=== PATIENT | female | born 1945 | race Caucasian/White ===

== ENCOUNTER 2017-02-14 11:16 | Inpatient (IN) | payer BC, MEDICARE ==
[2017-02-09 19:55] LABS: BASOPHILS 0.4 %; BASOPHILS ABSOLUTE 0.04 10/3/uL (0.0-0.16); EOSINOPHILS 0.4 %; EOSINOPHILS ABSOLUTE 0.04 10/3/uL (0.0-0.53); HEMATOCRIT 39.8 % (36.0-48.0); IMMATURE GRANULOCYTES 0.5 %; IMMATURE GRANULOCYTES ABSOLUTE 0.05 10/3/uL (0.0-0.11); LYMPHOCYTES 13.4 %; LYMPHOCYTES ABSOLUTE 1.22 10/3/uL (0.67-4.30); MEAN CORPUSCULAR HEMOGLOB 32.3 pg (26.0-34.0); MEAN CORPUSCULAR VOLUME 91.7 fL (80-100); MONOCYTES 6.5 %; MONOCYTES ABSOLUTE 0.59 10/3/uL (0.21-1.20); NEUTROPHILS 78.8 %; NEUTROPHILS ABSOLUTE 7.17 10/3/uL (2.02-8.40); PLATELET COUNT 340 10/3/uL (150-400); RBC DISTRIBUTION WIDTH 15.2 % (12.0-16.0); RED CELL COUNT 4.34 10/6/uL (4.0-5.6)
[2017-02-09 19:58] LABS: MANUAL DIFF NO %; MEAN CORPUS HGB CONC 35.2 g/dL (32.0-36.0); WHITE BLOOD CELLS 9.1 10/3/uL (4.5-10.5)
[2017-02-09 20:01] LABS: PARTIAL THROMBO TIME 27.1 SEC (22.5-37.2); PROTIME (NOT ORD) 12.7 SEC (12.0-14.5)
[2017-02-09 20:02] LABS: ASCORBIC ACID (UR NOT ORDER) NEG (NEG); BILIRUBIN, URINE NEGATIVE (NEG); KETONE, URINE NEGATIVE (NEG); LEUKOCYTE ESTERASE(NOT OR TRACE (NEG); WBC (NOT ORDERED) (RFLEX) 4 (0-5)
[2017-02-09 20:18] LABS: A/G RATIO 1.7 (0.7-1.9); ALBUMIN 4.1 G/DL (3.5-5.0); BUN (BLOOD UREA NITROGEN) 16 MG/DL (6-23); CALCIUM, SERUM 9.7 MG/DL (8.5-10.4); CHLORIDE, SERUM 91 MMOL/L (96-112); CO2 (CARBON DIOXIDE) 32 MMOL/L (24-34); CREATININE 0.95 MG/DL (0.55-1.02); GFR AFRICAN AMERICAN 70 ML/MIN (>=60); GFR NON AFRICAN AMERICAN 61 ML/MIN (>=60); GLOBULIN 2.4 G/DL (2.5-4.1); GLUCOSE, SERUM 120 MG/DL (60-99); SGOT(AST) 23 U/L (5-40); SGPT(ALT) 26 U/L (5-65); SODIUM, SERUM 133 MMOL/L (135-148); TOTAL BILIRUBIN 0.6 MG/DL (0-1.2); TOTAL PROTEIN 6.5 G/DL (6.0-8.5)
[2017-02-09 20:20] LABS: ALKALINE PHOSPHATASE 124 U/L (45-117); POTASSIUM, SERUM 4.6 MMOL/L (3.5-5.3)
--- NOTE | ~2017-02-14 | HP ---
History And Physical [address] [place]. [address] NAME: BRUCE LOONEY : 49 STATUS : ADM IN [facility]#: [id number] AGE: 72 ADM/REG DATE : 02/14/17 MR#: [id number] REPORT SERV DATE: 02/14/17 DICTATED BY: ALY GOLDEN III DATE: 02/14/17 REPORT STATUS : Draft TRANSCRIBED BY: MODL DATE: 02/14/17 DATE OF ADMISSION: 02/14/2017 CHIEF COMPLAINT: Left hip pain. HISTORY: The patient is a 72-year-old white female, who complains of pain in her left hip and has so for the past month. She got an MRI performed of both her left and right hip which revealed stage III avascular crevices of her left femoral head and stage II of her right femoral head. She is symptomatic on crutches. X-rays reveal collapse of her femoral head and she is admitted for a left total hip arthroplasty. Risks, benefits, and expected outcomes have been explained, but not limited to blood clots, infection, neurovascular injuries, limb length discrepancies either real or perceived, postoperative dislocations, intraoperative fractures, component failures, as well as persistent pain, limp, and foot drop. PAST MEDICAL HISTORY: Significant for high blood pressure. Otherwise, she denies any diabetes, liver, lung, or kidney problems. PREVIOUS SURGERIES: Includes back surgery and colon surgery. MEDICATIONS: Please see the MAR. ALLERGIES: PENICILLIN AND SULFA. SOCIAL HISTORY: The patient drinks alcohol, wine, and cocktails about two a day. PHYSICAL EXAMINATION: GENERAL: She is alert and oriented x3. VITAL SIGNS: Stable. HEENT: Normocephalic, atraumatic. Pupils are equal, round, and reactive to light and accommodation. Extraocular muscles are intact. NECK: Supple. CHEST: Clear. HEART: Regular rate rhythm without murmur. ABDOMEN: Benign. Soft, nontender. Positive bowel sounds. ORTHOPEDIC: Examination of her left hip reveals flexion 110 degrees, internal rotation 20, external rotation 30, abduction 35, and adduction 20. She has pain with internal rotation, fairly comfortable figure 4 positioning. Negative straight leg raise exam, and she is asymptomatic exam on the right hip through range of motion. X-rays of the left hip reveal avascular necrosis of her left hip with collapse. MRI reveals similar findings. There were no radiographic evidence of the right hip AVN on plain films, but positive on the MRI. 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 History And Physical [address] [place]. [address] NAME: BRUCE LOONEY : 49 STATUS : ADM IN [facility]#: [id number] AGE: 72 ADM/REG DATE : 02/14/17 MR#: [id number] REPORT SERV DATE: 02/14/17 DICTATED BY: ALY GOLDEN III DATE: 02/14/17 REPORT STATUS : Draft TRANSCRIBED BY: JACOB DATE: 02/14/17 PLAN: Admission for left total hip arthroplasty. TB/JACOB Aly Golden III, M.D. / [id number] CC: Aly Golden III, M.D.
--- NOTE | ~2017-02-14 | OP ---
Record Of Operation [facility] [address] [place]. [address] NAME: BRUCE LOONEY : 49 STATUS : ADM IN PAT#: [id number] AGE: 72 ADM/REG DATE : 02/14/17 MR#: [id number] REPORT SERV DATE: 02/14/17 DICTATED BY: EDWARD GOLDEN III DATE: 02/14/17 REPORT STATUS : Draft TRANSCRIBED BY: MODL DATE: 02/14/17 DATE OF PROCEDURE: 02/14/2017 PREOPERATIVE DIAGNOSIS: Avascular necrosis of the left hip. POSTOPERATIVE DIAGNOSIS: Avascular necrosis of the left hip with probable infection of left hip joint. SURGICAL PROCEDURE PERFORMED: Irrigation and debridement of left hip with 9 L of normal saline and placement of antibiotic-impregnated absorbable beads by Funji. COLLECTIONS REPRESENTATIVE: Seth. ANESTHESIA: General. ANTIBIOTICS: Vancomycin 1 g, gentamicin 80 mg. ESTIMATED BLOOD LOSS: 50 mL. CRYSTALLOID: 1100 mL. DRAINS: None. PROCEDURE IN DETAIL: The patient was brought to the operative room, placed on the table in supine position, and general anesthesia was induced. Vancomycin 1 g was administered intravenously in the operating room along with 80 mg of gentamicin. The patient was positioned in right lateral decubitus position. The left hip and lower extremity were entirely prepped in usual sterile fashion. After surgical time-out was called by the circulating nurse, a lateral incision was made to the left hip extending the incision directly over the greater trochanter in line with the femur for approximately 5 inches. The iliotibial band was incised and the self-retaining Charnley retractors placed in the wound. Anterior one-third abductor was taken off their attachments to the greater trochanter with Bovie electrocautery exposing the anterior capsule. A capsulotomy was carried out and abundant pus was encountered. Aerobic and anaerobic cultures were obtained as well as Gram stain and acid-fast and fungal and a cell count. Total hip arthroplasty was not performed secondary to what appeared to be infected hip. Abundant pus continued to be exposed around the inferior neck and all around the femoral head. 9 L of sterile normal saline was used to irrigate the hip joint. The antibiotic-impregnated cement beads were made on the back table with 1 g of vancomycin and 1.2 g of tobramycin and packed into the hip joint. Capsulorrhaphy was repaired. Anterior one-third abductor was reattached with #5 FiberWire x3 reinforced with #1 Vicryl suture. The iliotibial band was repaired with interrupted jprjhx-wh-dongh #1 Vicryl suture. Subcutaneous tissue was closed with 2-0 Vicryl and skin was closed using running 4-0 Monocryl. Benzoin and Steri-Strips were applied followed by Aquacel dressing. The patient tolerated the procedure well and brought to recovery in satisfactory condition. Record Of Operation [address] [place]. [address] NAME: BRUCE LOONEY : 49 STATUS : ADM IN PAT#: [id number] AGE: 72 ADM/REG DATE : 02/14/17 MR#: [id number] REPORT SERV DATE: 02/14/17 DICTATED BY: EDWARD GOLDEN III DATE: 02/14/17 REPORT STATUS : Draft TRANSCRIBED BY: JACOB DATE: 02/14/17 TB/JACOB Edward Golden III, M.D. / [id number] CC: Edward Golden III, M.D.
--- NOTE | ~2017-02-14 | CN ---
Consultation Report [facility] [address] [place]. [address] NAME: BRUCE LOONEY : 49 STATUS : ADM IN PAT#: [id number] AGE: 72 ADM/REG DATE : 02/14/17 MR#: [id number] REPORT SERV DATE: 02/15/17 DICTATED BY: NORA REED DATE: 02/15/17 REPORT STATUS : Draft TRANSCRIBED BY: MODL DATE: 02/15/17 INFECTIOUS DISEASE CONSULTATION DATE OF CONSULTATION: 02/15/2017 REASON FOR CONSULTATION: Possible hip infection. HISTORY OF PRESENT ILLNESS: This is a 72-year-old female with a past medical history notable for hypertension. She was in her baseline state of health until around 01/01/2017 when she said she awoke on Tuesday morning with pain in her left hip when she would bear weight on it. This was a totally new symptom. She denies any preceding infection symptoms prior to the onset of this pain. The pain worsened and she initially was seen by her primary care provider who did an x-ray and felt she had some arthritis, and she did get a brief course of prednisone and was prescribed physical therapy. She went to physical therapy four times and says it "killed me" and she could not do it anymore because of the pain. She eventually made her way to see Dr. Golden and an MRI was ordered of the left hip. This showed abnormal signal in the head of the left femur consistent with avascular necrosis. In addition, there was bone marrow edema in the acetabulum, femoral neck, and proximal shaft of the left femur and a very small asymmetric joint effusion. There was an additional region of abnormal signal with sclerotic margins in the right femoral head also consistent with avascular necrosis. The bones were diffusely osteopenic. With these findings, the patient was scheduled for a left total hip arthroplasty by Dr. Golden. However in the operating room yesterday when the capsulotomy was carried out, abundant purulent material was encountered consistent with infection. Cultures were obtained. The cell count was attempted, but the blood clotted. The joint was irrigated with 9 liters of sterile saline. Antibiotic- impregnated cement beads were placed with vancomycin and tobramycin into the joint and the patient was admitted to the floor. She did receive preoperative vancomycin and gentamicin. Gram stain of the material submitted showed no white blood cells and no organisms, and the culture is negative to date. Crystal analysis added later has returned negative. The patient denies any significant recent infections. She denies any fevers, chills, or sweats. The pain in the hip was mainly when she would bear weight on it, although over these past couple of weeks, it has worsened so that she would have pain sometimes at rest or just moving it while lying in the bed. The patient does note that she has had urinary tract infections, may be two to three times a year, but has not had one recently. She does also remembers just being feeling sick towards the end of November and some coworkers were ill, but this was just more generalized fatigue and no specific other symptoms. The patient denies any history of gout or pseudogout. PAST MEDICAL HISTORY: In addition to the above is notable for, treatment by Dr. Pearl for lumbar spine problems, which she says also involved infection and for which she received maybe two months of Cipro. We do not have any details. Otherwise, though she has had no problems with her spine since then. She also has had some surgery on her eyelids. She had colon cancer treated by Dr. Ovalle with colectomy and reanastomosis in 2016. This was done at [place]. She says this was a stage I and she did not receive any adjunctive Consultation Report [address] [place]. [address] NAME: BRUCE LOONEY : 49 STATUS : ADM IN [facility]#: [id number] AGE: 72 ADM/REG DATE : 02/14/17 MR#: [id number] REPORT SERV DATE: 02/15/17 DICTATED BY: NORA REED DATE: 02/15/17 REPORT STATUS : Draft TRANSCRIBED BY: MODAsia DATE: 02/15/17 chemotherapy or radiation therapy. ALLERGIES: SULFA WHICH CAUSES A RASH AND PENICILLIN WHICH CAUSES SWELLING OF HER FACE AND LIPS. OUTPATIENT MEDICATIONS: Included Soma, Nexium, Imodium, metoprolol, multivitamins, Aleve, Benicar, and Ultram. SOCIAL HISTORY: Nonsmoker. She does drink alcohol on a daily basis. Lives with a significant other. She does have a pet dog and cats, no significant bites or scratches. No unusual dietary habits. No pertinent recent travel or exposure history, otherwise. The patient did smoke many years ago, but has not smoked for over 30 years. FAMILY HISTORY: Unremarkable with regard to the present acute problem. REVIEW OF SYSTEMS: As outlined above. In addition, no significant headaches, no dental problems. Denies any chronic cough, chest pain, nausea, vomiting, or diarrhea. No dysuria recently. No skin problems or skin infections such as boils or abscesses. PHYSICAL EXAMINATION: VITAL SIGNS: The patient weighs 73 kg. She is afebrile. Blood pressure 121/60, pulse 69, and respiratory rate 14. GENERAL: She is alert and in no acute distress. HEAD AND NECK: Extraocular movements are intact. Oral cavity is clear. Neck is supple. No adenopathy. LUNGS: Clear to auscultation. CARDIAC: Regular rate and rhythm. Normal S1 and S2 without murmur, gallop, or rub. ABDOMEN: Soft and nontender. No masses appreciated. SKIN: Without rash. EXTREMITIES: Showed no signs of cellulitis, no significant edema. NEUROLOGIC: Grossly intact. LABORATORY STUDIES: White blood cell count on 02/09/2017 9.1, yesterday 7.2; hemoglobin 11.2; and platelets 201. Creatinine 0.95. Alkaline phosphatase 124. Other liver function tests normal. On 02/09/2017, urinalysis showed trace leukocyte esterase. Microbiology studies, otherwise, as noted above. MRI as noted. IMPRESSION: Possible infection complicating avascular necrosis. I did review the MRI with Radiology. The findings are consistent with avascular necrosis, although there is also this bone marrow edema in the femoral neck, in the proximal femur, and I do not think this would be a typical finding and just avascular necrosis. Certainly, the material Dr. Golden saw in the operating room strongly suggest infection curiously, though the Gram stain shows no white blood cells. The culture is negative to date, although course could be compromised by the preoperative antibiotics that the patient received. There are no historical clues Consultation Report [address] [place]. [address] NAME: BRUCE LOONEY : 49 STATUS : ADM IN [facility]#: [id number] AGE: 72 ADM/REG DATE : 02/14/17 MR#: [id number] REPORT SERV DATE: 02/15/17 DICTATED BY: NORA REED DATE: 02/15/17 REPORT STATUS : Draft TRANSCRIBED BY: JACOB DATE: 02/15/17 really to strongly suggest an etiology of infection and her history with pain going on for weeks like this without fevers does not really suggest atypical bacterial septic arthritis. Must consider the possibility of more indolent pathogens here. PLAN: 1. For now, we will keep the patient on vancomycin and reassess the cultures tomorrow and discuss further with Dr. Golden. 2. AFB fungal and anaerobic cultures were sent and we will follow up on these also. ANGELES/JACOB Nora Reed M.D. / [id number] CC: Edward Golden III, M.D.
[~2017-02-14 11:16] MED LIST: ALEVE220 MG PO; ASAB PO; BENICAR HCT1 TA2 PO; IMOD PO; MULTIPLE VIT PO; NEXIUM40 PO; SOMATAB PO; TOPXL100 PO; ULTRAM50 PO
[2017-02-14 15:49] LABS: BASOPHILS 0.4 %; BASOPHILS ABSOLUTE 0.03 10/3/uL (0.0-0.16); EOSINOPHILS ABSOLUTE 0.14 10/3/uL (0.0-0.53); HEMATOCRIT 35.9 % (36.0-48.0); HEMOGLOBIN 12.6 g/dL (12.0-16.0); IMMATURE GRANULOCYTES 0.3 %; IMMATURE GRANULOCYTES ABSOLUTE 0.02 10/3/uL (0.0-0.11); LYMPHOCYTES 19.7 %; LYMPHOCYTES ABSOLUTE 1.41 10/3/uL (0.67-4.30); MEAN CORPUS HGB CONC 35.1 g/dL (32.0-36.0); MEAN CORPUSCULAR HEMOGLOB 32.2 pg (26.0-34.0); MEAN CORPUSCULAR VOLUME 91.8 fL (80-100); MEAN PLATELET VOLUME 8.6 fL (9.2-13.0); NEUTROPHILS 70.6 %; NEUTROPHILS ABSOLUTE 5.06 10/3/uL (2.02-8.40); RBC DISTRIBUTION WIDTH 14.5 % (12.0-16.0); RED CELL COUNT 3.91 10/6/uL (4.0-5.6); WHITE BLOOD CELLS 7.2 10/3/uL (4.5-10.5)
[2017-02-14 15:52] LABS: MANUAL DIFF NO %; PLATELET COUNT 201 10/3/uL (150-400)
[2017-02-15 04:25] LABS: HEMATOCRIT 32.2 % (36.0-48.0); HEMOGLOBIN 11.2 g/dL (12.0-16.0)
[2017-02-15 12:48] LABS: BASOPHILS 0.2 %; BASOPHILS ABSOLUTE 0.02 10/3/uL (0.0-0.16); EOSINOPHILS 0.3 %; EOSINOPHILS ABSOLUTE 0.03 10/3/uL (0.0-0.53); HEMATOCRIT 32.3 % (36.0-48.0); HEMOGLOBIN 11.2 g/dL (12.0-16.0); IMMATURE GRANULOCYTES 0.2 %; IMMATURE GRANULOCYTES ABSOLUTE 0.02 10/3/uL (0.0-0.11); LYMPHOCYTES 14.5 %; LYMPHOCYTES ABSOLUTE 1.35 10/3/uL (0.67-4.30); MANUAL DIFF NO %; MEAN CORPUS HGB CONC 34.7 g/dL (32.0-36.0); MEAN CORPUSCULAR HEMOGLOB 31.5 pg (26.0-34.0); MEAN PLATELET VOLUME 8.7 fL (9.2-13.0); MONOCYTES ABSOLUTE 0.65 10/3/uL (0.21-1.20); NEUTROPHILS 77.8 %; NEUTROPHILS ABSOLUTE 7.24 10/3/uL (2.02-8.40); PLATELET COUNT 224 10/3/uL (150-400); RBC DISTRIBUTION WIDTH 14.4 % (12.0-16.0); RED CELL COUNT 3.55 10/6/uL (4.0-5.6); WHITE BLOOD CELLS 9.3 10/3/uL (4.5-10.5)
[2017-02-15 13:52] LABS: SED RATE 12 MM/HR (0-20)
[2017-02-16 05:29] LABS: BASOPHILS 0.4 %; BASOPHILS ABSOLUTE 0.03 10/3/uL (0.0-0.16); EOSINOPHILS 2.5 %; EOSINOPHILS ABSOLUTE 0.18 10/3/uL (0.0-0.53); HEMOGLOBIN 10.6 g/dL (12.0-16.0); IMMATURE GRANULOCYTES 0.3 %; IMMATURE GRANULOCYTES ABSOLUTE 0.02 10/3/uL (0.0-0.11); LYMPHOCYTES 25.9 %; LYMPHOCYTES ABSOLUTE 1.86 10/3/uL (0.67-4.30); MEAN CORPUS HGB CONC 35.3 g/dL (32.0-36.0); MEAN CORPUSCULAR HEMOGLOB 32.2 pg (26.0-34.0); MEAN CORPUSCULAR VOLUME 91.2 fL (80-100); MONOCYTES 8.4 %; NEUTROPHILS 62.5 %; NEUTROPHILS ABSOLUTE 4.48 10/3/uL (2.02-8.40); PLATELET COUNT 194 10/3/uL (150-400); RBC DISTRIBUTION WIDTH 14.1 % (12.0-16.0); RED CELL COUNT 3.29 10/6/uL (4.0-5.6); WHITE BLOOD CELLS 7.2 10/3/uL (4.5-10.5)
[2017-02-16 05:31] LABS: MANUAL DIFF NO %
[2017-02-16 05:43] LABS: CALCIUM, SERUM 9.2 MG/DL (8.5-10.4); CHLORIDE, SERUM 93 MMOL/L (96-112); GFR AFRICAN AMERICAN 87 ML/MIN (>=60); GFR NON AFRICAN AMERICAN 75 ML/MIN (>=60); POTASSIUM, SERUM 4.2 MMOL/L (3.5-5.3); SODIUM, SERUM 127 MMOL/L (135-148)
[2017-02-16 05:50] LABS: BUN (BLOOD UREA NITROGEN) 10 MG/DL (6-23); C-REACTIVE PROTEIN 24.4 MG/L (<8.0); CO2 (CARBON DIOXIDE) 25 MMOL/L (24-34); GLUCOSE, SERUM 89 MG/DL (60-99)
[2017-02-16 06:10] LABS: SED RATE 15 MM/HR (0-20)
[2017-02-16] MEDS ORDERED: ASABAYER PO (12:28)
[2017-02-16] MEDS ORDERED: PERCOCET 10/3251 TAB PO (12:29)
[2017-02-22] MEDS ORDERED: ZOVI800 PO (13:52)
[2017-02-22] MEDS ORDERED: ZOVIRAX TOP (13:55)
== END 2017-02-16 14:40 | disposition home or self-care (01) | DRG 502 ==
LOC: SDC/OF 11:16 → PACU 15:26 → 3JRC 16:35 → 3SO 02-15 11:11
PROVIDERS: Internal Medicine Infectious Disease; Orthopaedic Surgery
PROC: 0JDM0ZZ Extraction of Left Upper Leg Subcutaneous Tissue and Fascia, Open Approach (ICD-10-PCS; principal; 2017-02-14 12:30)
PROC: 3E0U029 Introduction of Other Anti-infective into Joints, Open Approach (ICD-10-PCS; 2017-02-14 12:30)
DX: M87.852 Other osteonecrosis, left femur (principal)
CPT/HCPCS: 36415; 72170; 80048; 80053; 81001; 85014; 85018; 85025; 85610; 85652; 85730; 86140; 86850; 86900; 86901; 87015; 87070; 87075; 87102; 87116; 87205; 87641; 89060; 93005; 97110-GP; 97116-GP; 97161-GP; 97165-GO; 97535-GO; A9270-GY; C1713; G8978-CK-GP; G8979-CJ-GP; G8987-CI-GO; G8988-CH-GO; J1580; J1885; J2250; J2270; J2274; J2370; J2405; J2550; J2710; J2795; J3010; J3260; J3370

== ENCOUNTER 2017-02-23 06:54 | Inpatient (IN) | payer BC, MEDICARE ==
--- NOTE | ~2017-02-23 | HP ---
History And Physical [address] [place]. [address] NAME: BRUCE LOONEY : 49 STATUS : ADM IN [facility]#: [id number] AGE: 72 ADM/REG DATE : 02/23/17 MR#: [id number] REPORT SERV DATE: 02/23/17 DICTATED BY: EDWARD GOLDEN III DATE: 02/23/17 REPORT STATUS : Draft TRANSCRIBED BY: MODL DATE: 02/23/17 DATE OF ADMISSION: 02/23/2017 CHIEF COMPLAINT: Left hip pain. HISTORY: The patient is a 72-year-old white female who is admitted with avascular necrosis of her left hip. She was brought to surgery about a week ago and was found to have pus in her area hip, where cultures were obtained to rule out infection. A letter to Research revealed seven cases found in the literature that described pus in the hip mimicking infection, but it was actually bone marrow weeping from the femur from the collapsed femoral head. All cultures are negative to date. She is afebrile and she has been off antibiotics. She is scheduled for left hip replacement at this time. Risks, benefits, and expected outcomes have been explained, but not limited to blood clots, infection, neurovascular injuries, limb length discrepancies either real or perceived, postoperative dislocations, intraoperative fractures, component failures, persistent pain and limp, as well as foot drop. PAST MEDICAL HISTORY: Significant for high blood pressure. Otherwise, she denies any diabetes, liver, lung, or kidney problems. PREVIOUS SURGERIES: Include back surgery in 2001 and colon surgery in 2016. MEDICATIONS: Tramadol, Soma, and multivitamins. ALLERGIES: PENICILLIN AND SULFA. SOCIAL HISTORY: Nonsmoker. Alcohol, two drinks a day. PHYSICAL EXAMINATION: GENERAL: She is alert and oriented x3. VITAL SIGNS: Stable. HEENT: Normocephalic, atraumatic. Pupils are equal, round, and reactive to light and accommodation. Extraocular muscles are intact. NECK: Supple. CHEST: Clear. HEART: Regular rate rhythm without murmur. ABDOMEN: Benign, soft, and nontender. Positive bowel sounds. ORTHOPEDIC: Examination reveals marked tenderness to the left hip. She has flexion 110 degrees, internal rotation 20, external rotation 30, abduction 35, adduction 20. Tenderness at the figure 4 positioning. IMAGING: X-rays and MRI revealed avascular necrosis of her left hip. PLANS: Admission for left total hip arthroplasty. History And Physical [address] [address] NAME: BRUCE LOONEY : 49 STATUS : ADM IN [facility]#: [id number] AGE: 72 ADM/REG DATE : 02/23/17 MR#: [id number] REPORT SERV DATE: 02/23/17 DICTATED BY: EDWARD GOLDEN III DATE: 02/23/17 REPORT STATUS : Draft TRANSCRIBED BY: MODAsia DATE: 02/23/17 TB/JACOB Edward Golden III, M.D. / [id number] CC: Edward Golden III, M.D.
--- NOTE | ~2017-02-23 | OP ---
Record Of Operation [facility] [address] [place]. [address] NAME: BRUCE LOONEY : 49 STATUS : ADM IN PAT#: [id number] AGE: 72 ADM/REG DATE : 02/23/17 MR#: [id number] REPORT SERV DATE: 02/23/17 DICTATED BY: EDWARD GOLDEN III DATE: 02/23/17 REPORT STATUS : Draft TRANSCRIBED BY: MODL DATE: 02/23/17 DATE OF PROCEDURE: 02/23/2017 PREOPERATIVE DIAGNOSIS: Avascular necrosis, left hip. POSTOPERATIVE DIAGNOSIS: Avascular necrosis, left hip. SURGICAL PROCEDURE PERFORMED: Left total hip arthroplasty using the DePuy system with size 52 mm Woodacre cup, size 6 high offset Graford stem, with a 1.5, 36 mm ceramic head ball, with a +4 polyethylene liner. SURGEON: Edward Golden M.D. SPORTS COORDINATOR: Edward Manzano. ANESTHESIA: General. ANTIBIOTICS: Vancomycin 1 g and gentamicin 320 mg. COMPLICATIONS: None. CRYSTALLOID: 1100 mL. ESTIMATED BLOOD LOSS: 120 mL. Tranexamic acid 2 g. PROCEDURE IN DETAIL: The patient was brought to the operative room, placed on the table in supine position, and general anesthesia was induced. IV antibiotics were administered intravenously in the operating room. The patient was positioned in the right lateral decubitus position. Left hip and lower extremity were entirely prepped and draped in the usual sterile fashion. Assuring good anesthesia, a straight lateral approach was made to the left hip, extending the incision directly over the greater trochanter in line with the femur for approximately 6 inches. The iliotibial band was incised. Self-retaining Charnley retractors were placed in the wound. Anterior one-third abductors were taken off their attachment to the greater trochanter with a Bovie electrocautery, exposing the femoral neck and head. The femoral head was dislocated with a bone hook and with gentle longitudinal traction and external rotation. Femoral neck osteotomy was made with a reciprocating saw. Hohmann retractors were placed around the acetabulum in 3, 6, and 9 o'clock position. The transverse acetabular ligament labrum was debrided. A power reamer was utilized starting with a 43 going up to a size 51. A 52 mm Woodacre cup was impacted at 45 degrees horizontal, with 10 of 15 degrees of anteversion. A hole eliminator was next placed, followed by a +4 polyethylene liner. The hip was then flexed and externally rotated in a sterile pouch off the front of the table. A cookie cutter was used to enter the greater trochanter followed by a T-handled reamer to enter the femoral canal. Power reamer was utilized starting with a 2-3 going up to a size 6-7. Serial reamer was utilized starting Record Of Operation [address] [place]. [address] NAME: BRUCE LOONEY : 49 STATUS : ADM IN PAT#: [id number] AGE: 72 ADM/REG DATE : 02/23/17 MR#: [id number] REPORT SERV DATE: 02/23/17 DICTATED BY: EDWARD GOLDEN III DATE: 02/23/17 REPORT STATUS : Draft TRANSCRIBED BY: JACOB DATE: 02/23/17 with 2, going up to a size 6. Calcar planer was utilized. The hip was reduced with a 1.5, 36 mm head ball high offset. Good range of motion and stability was noted. Trial broach was removed. The real size 6 Graford porous-coated high offset stem was impacted with good fixation. A 1.5, 36 mm ceramic head ball was added. The hip was reduced and again checked for good range of motion and stability throughout. Thorough irrigation was carried out throughout the procedure with pulse lavage system. The anterior one-third abductor was reattached to the greater trochanter with #5 FiberWire x3, and reinforced with #1 Vicryl suture. Ann Marie was used as a hemolytic as a coagulation substance. The iliotibial band was repaired with interrupted [id number] #1 Vicryl suture. Subcutaneous tissue was closed 2-0 Vicryl, and skin was closed using running 4-0 Monocryl. Benzoin and Steri-Strips were applied, followed by an Aquacel dressing. The patient tolerated the procedure well, brought to recovery in satisfactory condition. There were no intraoperative, postoperative, or anesthetic complications. All instrument, needle, sponge, and lap counts were correct. NIKA/JACOB Edward Golden III, M.D. / [id number] CC: Key Davis III, M.D.
[~2017-02-23 06:54] MED LIST changes: +ASABAYER PO; +PERCOCET 10/3251 TAB PO; +ZOVI800 PO; +ZOVIRAX TOP
[2017-02-23 08:29] LABS: A/G RATIO 0.8 (0.7-1.9); ALBUMIN 2.9 G/DL (3.5-5.0); ALKALINE PHOSPHATASE 121 U/L (45-117); BUN (BLOOD UREA NITROGEN) 10 MG/DL (6-23); CALCIUM, SERUM 9.5 MG/DL (8.5-10.4); CHLORIDE, SERUM 95 MMOL/L (96-112); CO2 (CARBON DIOXIDE) 32 MMOL/L (24-34); CREATININE 0.94 MG/DL (0.55-1.02); GFR AFRICAN AMERICAN 71 ML/MIN (>=60); GFR NON AFRICAN AMERICAN 61 ML/MIN (>=60); GLOBULIN 3.8 G/DL (2.5-4.1); GLUCOSE, SERUM 95 MG/DL (60-99); POTASSIUM, SERUM 3.3 MMOL/L (3.5-5.3); SGOT(AST) 25 U/L (5-40); SGPT(ALT) 23 U/L (5-65); SODIUM, SERUM 135 MMOL/L (135-148); TOTAL BILIRUBIN 0.6 MG/DL (0-1.2); TOTAL PROTEIN 6.7 G/DL (6.0-8.5)
[2017-02-24 13:16] LABS: HEMOGLOBIN 9.1 g/dL (12.0-16.0)
[2017-02-24 13:18] LABS: HEMATOCRIT 26.5 % (36.0-48.0)
[2017-02-25 05:21] LABS: HEMATOCRIT 27.2 % (36.0-48.0); HEMOGLOBIN 9.2 g/dL (12.0-16.0)
[2017-02-25] MEDS ORDERED: ELIQUIS 2.5 MG2.5 MG PO (15:50)
[2017-02-25] MEDS ORDERED: PERCOCET 10/3251 TAB PO (15:51)
[2017-02-25] MEDS ORDERED: ULTRAM50 PO (15:52)
== END 2017-02-25 17:07 | disposition home or self-care (01) | DRG 470 ==
LOC: SDC/OF 06:54 → PACU 12:28 → 3SO 14:19
PROVIDERS: Orthopaedic Surgery
PROC: 0SRB049 Replacement of Left Hip Joint with Ceramic on Polyethylene Synthetic Substitute, Cemented, Open Approach (ICD-10-PCS; principal; 2017-02-23 09:30)
DX: M87.852 Other osteonecrosis, left femur (principal)
CPT/HCPCS: 36415; 72170; 80053; 85014; 85018; 86850; 86900; 86901; 88304; 88311; 97110-GP; 97116-GP; 97161-GP; 97165-GO; A9270-GY; C1776; J1170; J1580; J1885; J2250; J2270; J2370; J2405; J2710; J2795; J3010; J3370